=== PATIENT | female | born 1970 | race American Indian/Alaskan Native ===

== ENCOUNTER 2016-11-13 11:56 | Outpatient (CLI) | payer OTHER ==
--- NOTE | 2016-11-13 12:58 | XRay Report ---
CHEST TWO VIEWS: 11/13/16 11:56:00 CLINICAL: Cough. COMPARISON: None FINDINGS: Normal heart and pulmonary vasculature. The lungs are normally expanded and clear.The bones and soft tissues are unremarkable. IMPRESSION: Normal chest.
== END 2016-11-13 11:57 | disposition home or self-care (01) ==
LOC: SPVIMAG 11:56
DX: R05 Cough (principal)
CPT/HCPCS: 71020